=== PATIENT | female | born 1985 | race African-American/Black ===

== ENCOUNTER 2023-09-15 15:40 | Emergency (ER) | payer MEDICAID ==
[~2023-09-15] VITALS: Ht 165.1 cm; Wt 97.7 kg
[2023-09-15] MEDS ORDERED: ACETAMINOPHEN 500 MG TABLET PO ONE (16:30)
[2023-09-15] MEDS ORDERED: KETOROLAC TROMETHAMINE 30 MG/ML VIAL IM ONE (16:30)
[2023-09-15 17:03] VITALS: TEMP 98.2
[2023-09-15 18:00] VITALS: BP 124/64; PULSE 61; RESP 17
[2023-09-15] MEDS ORDERED: IBUP-1492 PO (18:37)
== END 2023-09-15 18:56 | disposition home or self-care (01) ==
LOC: EMS 15:41
DX: S83.91XA Sprain of unspecified site of right knee, initial encounter (principal); W19.XXXA Unspecified fall, initial encounter; Y93.89 Activity, other specified; Y92.89 Other specified places as the place of occurrence of the external cause; Y99.8 Other external cause status
CPT/HCPCS: 99283; 29505; 73564; 96372; J1885